=== PATIENT | male | born 1960 | race Caucasian/White ===

== ENCOUNTER 2020-03-11 11:37 | Outpatient (REF) | payer OTHER, SELFPAY | END 2020-03-11 11:38 | disposition home or self-care (01) | LOC: HO.LAB 11:37 | PROVIDERS: Visit Provider Internal Medicine | DX: Z20.822 Contact with and (suspected) exposure to COVID-19 (principal) | CPT/HCPCS: 36415; C9803; U0003 ==

== ENCOUNTER 2021-07-22 10:01 | Outpatient (REF) | payer OTHER, SELFPAY ==
--- NOTE | 2021-07-22 12:31 | MHC.AU.AEV ---
Adult Audiological Evaluation Date of Visit: 07/22/21 Reason for Appointment: Patient has been noticing gradually increasing hearing difficulty. He has been asking for repetition more frequently. History of occupational noise exposure. Has hearing been tested previously?: Previous Hearing Test Results: He previously had annual hearing screenings at his work, and was told he was starting to develop hearing loss. Hearing Handicap Inventory Does a hearing problem cause you to feel embarrassed when meeting new people?: Sometimes Does a hearing problem cause you to feel frustrated when talking to members of your family?: Yes Do you have difficulty when someone speaks in a whisper?: Yes Do you feel handicapped by a hearing problem?: Sometimes Does a hearing problem cause you difficulty when visiting friends, relatives, or neighbors?: Yes Does a hearing problem cause you to attend [employer] service services less often than you would like?: No Does a hearing problem cause you to have arguments with family members?: No Does a hearing problem cause you difficulty when listening to TV or radio?: Yes Do you feel that any difficult with your hearing limits or hampers your personal or social life?: Sometimes Does a hearing problem cause you difficulty when in a restaurants with relatives or friends?: Yes HHIE SCORE: 26 Based on HHIE score, patient has: Severe perceived hearing handicap Ear History: Ear Deformity: Recent Ear Drainage: None Reported Recent Ear Pain: None Reported Family History of Hearing Loss?: No Recent Ear Infections: None Reported Ear Infections in Childhood: None Reported History of Ear Wax Buildup: None Reported Previous Ear Surgery: None Reported Bothersome Tinnitus/Ringing/Noises in Ears: None Reported Ear used on the phone: Right Ear Blocked/Full Sensation in Ear(s): Both Ears 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 History: No Medical History: Medical History: Seasonal allergies, History of splenectomy Otoscopy: Right Ear: Unremarkable Left Ear: Unremarkable Tympanometry: Tympanometry performed due to: To assess integrity of the middle ear system Right Ear: Normal Middle Ear System (Type A) Left Ear: Normal Middle Ear System (Type A) Hearing Evaluation: Transducer(s) Used: Insert Earphones Method: Conventional Audiometry Stimuli Used: Pure Tones Right Ear: Description of Hearing: Borderline-normal sloping to severe sensorineural hearing loss Left Ear: Description of Hearing: Borderline-normal sloping to severe sensorineural hearing loss Speech Recognition Threshold (SRT): Method Used: Recorded Lists Stimuli Used: Spondee Words Right Ear: 25 dBHL Left Ear: 20 dBHL Word Discrimination: Method: Recorded Lists Word Lists Used:: W-22 Right Ear: 84% at 65 dBHL Left Ear: 100% at 65 dBHL Most Comfortable Level (MCL): Right Ear: 65 dBHL Left Ear: 65 dBHL Recommendations: Audiological re-evaluation in one year. Patient is interested in amplification. He was provided with information for [employer] ([email or web address]://[email or web address]). If he is unable to proceed through [facility], he is welcome to schedule a hearing aid evaluation to discuss amplification options. Diagnosis: Primary Diagnosis: H90.3 Bilateral Sensorineural Hearing Loss Signature: Provider: Fernando Burnett, CCC-A
== END 2021-07-22 10:02 | disposition home or self-care (01) ==
LOC: HO.SH 10:01
PROVIDERS: Visit Provider Internal Medicine
DX: H90.3 Sensorineural hearing loss, bilateral (principal)
CPT/HCPCS: 92557; 92567